=== PATIENT | female | born 1990 | race Caucasian/White ===

== ENCOUNTER 2025-09-19 04:13 | Inpatient (IN) | payer MEDICAID, SELFPAY ==
[2025-09-19] VITALS (8 sets, daily range): BP systolic 132–160; BP diastolic 80–105; PULSE 66–123; RESP 17–22; TEMP 36.1–36.7; O2SAT 96–100; BMI 21.6
--- NOTE | ~2025-09-19 | CT_ITS ---
EXAMINATION: CT ABDOMEN AND PELVIS WITH CONTRAST CLINICAL INFORMATION: pancreatitis COMPARISON: None available. TECHNIQUE: Multidetector volumetric images were obtained from the superior aspect of the liver through the pubic symphysis following administration 85 mL of Omnipaque 350 intravenous contrast. Sagittal and coronal reformatted images were obtained on the technologist's workstation. Oral contrast: No This CT examination was performed using dose optimization techniques as appropriate, variously including the following: *Automated exposure control *Adjustment of mA and/or kV according to patient size (this includes techniques or standardized protocols for targeted exams where dose is matched to indication/reason for exam; i.e. extremities or head) *Use of iterative reconstruction technique FINDINGS: LOWER CHEST: No focal lung consolidation. No pleural effusion. LIVER: Mild hepatomegaly measuring 15.5 cm. No focal lesions. GALLBLADDER AND BILIARY TREE: The gallbladder is unremarkable with no evidence of radiopaque gallstones, gallbladder wall thickening, or obvious pericholecystic inflammatory changes. No biliary ductal dilatation. PANCREAS: Parenchyma appears to enhance homogeneously. Small amount of stranding and fluid surrounding the pancreas. No pancreatic ductal dilatation. SPLEEN: No splenomegaly. No focal lesions. ADRENAL GLANDS: No nodules. KIDNEYS AND URETERS: No focal renal lesions or hydronephrosis. GASTROINTESTINAL TRACT: No bowel distention. Peritoneum/retroperitoneum: Small amount of fluid and fatty stranding surrounding the pancreas. No encapsulated/walled off fluid collection. No free air. ABDOMINAL WALL: Nipple jewelry in place. LYMPH NODES: Normal. VASCULAR: No abdominal aortic aneurysm. PELVIC VISCERA: Urinary bladder is decompressed. Physiologic appearance of the ovaries. No concerning masses. OSSEOUS STRUCTURES: No acute findings. CT/CT abdomen pelvis w IV con IMPRESSION: Findings compatible with interstitial pancreatitis associated with a small amount of nonencapsulated peripancreatic fluid/fat stranding. Electronically signed by: Regsi Arauz MD 09/19/2025 09:06 AM [facility]
[2025-09-19 04:43] LABS: MANUAL DIFF FLAG NO
[2025-09-19 04:44] LABS: Hematocrit 45.4 % (37.0-47.0); Hemoglobin 15.9 g/dl (12.0-16.0); Imm Gran Abs Auto 0.07 X10*3/uL (0.00-0.03); Imm Gran Pct Auto 0.4 % (0.0-0.4); Lymphocytes Absolute Auto 2.5 X10*3/uL (1.2-4.9); Mean Corpuscular HGB Conc 35.0 g/dl (31.0-35.0); Mean Corpuscular Hemoglobin 31.9 pg (27.0-33.0); Mean Corpuscular Volume 91.0 fL (80.0-98.0); NRBC Abs Auto 0.000 X10*3/uL (0.0-0.012); NRBC Pct Auto 0.0 /100WBC (0.0-0.2); Platelet Count 253 X10*3/uL (160-400); Red Blood Count 4.99 X10*6/uL (4.20-5.50); White Blood Count 17.7 X10*3/uL (4.8-10.8)
--- OUTSIDE RECORDS SUMMARY | 2025-09-19 05:00 | XMS_ITS | Clinical Summary ---
Author Organization [facility] Address [address] [place] [address] Care Team Providers Care Piano Teacher Name Role Phone Elsie Rashid PA-C Primary Care Provider [phone] Source Comments PLEASE NOTE, if this patient is a minor, it may be UNLAWFUL to discuss sensitive information that is contained in these records (such as FAMILY PLANNING, MENTAL HEALTH or SUBSTANCE ABUSE) with the minor patient's parent or other person without the patient's specific authorization.[facility] Allergies No known active allergies Medications ergocalciferol, vitamin D2, (VITAMIN D2) 50,000 unit capsuleIndicatio ns:Vitamin D deficiency Take 1 Cap by mouth once a week. 4 Cap 2 07/05/2013 Active Social History Tobacco Use Types Packs/Day Years Used Date Smoking Tobacco: Every Day Cigarettes Tobacco Cessation:Ready to Q uit: Yes Alcohol Use Standard Drinks/Week Comments Yes 1.7 (1 standard drink = 0.6 oz p ure alcohol) pt drinks wine coolers Comments No Sex and Gender Information Value Date Recorded Sex Assigned at Not on file Legal Sex Female 11:36 AM PDT Gender Identity Not on file Sexual Orientation Not on file Last Filed Vital Signs Vital Sign Reading Time Taken Comments Blood Pressure 100/80 07/05/2013 1:57 PM EDT Pulse 62 07/05/2013 1:57 PM EDT Temperature 36.5 C (97.7 F) 07/05/2013 1:57 PM EDT Respiratory Rate 15 07/05/2013 1:57 PM EDT Oxygen Saturation - - Inhaled Oxygen Concentration - - Weight 49.9 kg (110 lb) 07/05/2013 1:57 PM EDT Height 147.3 cm (4' 10 ) 07/05/2013 1:57 PM EDT Body Mass Index 22.99 07/05/2013 1:57 PM EDT Plan of Treatment Not on file Insurance [facility] Member Subscriber Plan / Payer (Ef fective 2013-Present) Name:Lisa Ann Relation to Subscriber:Self Name:Lisa Ann Payer ID:[id number] Group ID:Not on file Type:Medicaid Address: [facility] [id number] [place] [address] Care Teams Piano Teacher Relationship Specialty Start Date End Date Elsie Rashid PA-C [address] [place] [address] PCP - General 07/05/13
[2025-09-19 05:10] LABS: Alanine Aminotransferase 33 U/L (0-31); Albumin Level 4.0 g/dL (3.5-5.0); Alkaline Phosphatase 59 U/L (39-117); Anion Gap 22 (12-20); Aspartate Amino Transferase 73 U/L (5-31); Blood Urea Nitrogen 13 mg/dL (9-16); Calcium 9.1 mg/dL (8.4-10.2); Carbon Dioxide 17 mmol/L (22-29); Chloride 101 mmol/L (96-108); Creatinine Clr Calc Pharmacy 55.7; Estimated Glomerular Filt Rate > 60; Potassium 4.3 mmol/L (3.3-5.1); Sodium 136 mmol/L (135-145); Total Protein 7.5 g/dL (6.5-8.0)
[2025-09-19 05:22] LABS: Lipase 514 U/L (8-78)
--- NOTE | 2025-09-19 05:31 | PC.NURSE ---
pt noted to be throwing up while sitting on stretcher. IV placed in R AC.
[2025-09-19 06:04] LABS: Appearance Urine Cloudy; Glucose Urine UA 100 mg/dL (Negative); PH 6.0 (5.0-9.0); Specific Gravity - Urine >= 1.030 (1.005-1.025); UMIC TRIGGER UACC YES
[2025-09-19 06:13] LABS: UACC Culture Trigger YES
--- NOTE | 2025-09-19 06:42 | ED_ITS ---
HPI - Abdominal Pain General Chief Complaint: Abdominal Pain Stated Complaint: Abdominal Pain Time Seen by Provider: 09/19/25 06:17 Source: patient Mode of arrival: ambulatory Limitations: no limitations History of Present Illness ED Provider: HPI narrative: 34-year-old woman, drinks wine daily, history of pancreatitis a year ago, states last drink was yesterday but has been drinking consistently with a past year, reports shakes, and also possibly in the past had a seizure but was not so clear about that, has not been to detox, otherwise fairly functional and has a regular job denies drug use. Presented with nausea, vomiting, anxiety and epigastric abdominal pain. Related Data Allergies Allergy/AdvReac Type Severity Reaction Status Date / Time No Known Allergies Allergy Verified 09/19/25 04:19 Review of Systems Constitutional: Reports as per HPI [facility] Social History Social History Smoked in Last 30 Days: No Use of substances other than those prescribed or required for medical reasons: No Advance Directives: No Advance Directives Information Provided: Yes Patient : No Physical Exam ED Exam Exam: General: ?Appears of stated age, somewhat shaky ? ?no scleral icterus, dry oral mucosa ? Neck: Supple, no LAD ? ?CV: Tachycardic and regular ? ?Resp: ?No wheezing rales rhonchi no stridor moving air well ? Abd: ?Bowel sounds are present, n epigastric tenderness no rebound or rigidity ? ?MSK: FROM, strength 5/5 all extremities ? Skin: Warm, dry, intact, ? ?Neuro: ?Alert and oriented x3, moving upper and lower extremities symmetrically, no obvious facial asymmetry noted, cranial nerves 2-12 intact, tremulous, no tongue fasciculations Vital Signs: Vital Signs - 24 hr 09/19/25 04:16 09/19/25 04:41 09/19/25 08:00 Temperature 97.5 F Pulse Rate 123 H 105 H 66 Respiratory Rate 20 20 Blood Pressure 137/89 132/88 Pulse Oximetry 99 98 Oxygen Delivery Method Room Air Room Air BMI result Body Mass Index 21.6 Medical Decision Making Medical Decision Making [facility] Narrative: 7:47 AM 09/19/2025 (Dr. Erick Daniels): Anticipating admission for alcohol withdrawal, workup for pancreatitis, I think she is someone who would do well with Valium and did not feel that this patient is very high-risk for phenobarbital initiation at least at this time, does have tender abdomen we will obtain further imaging if she does have pancreatitis to make sure there was no pancreatic cysts or any biliary pathology, not Differential Diagnosis Differential Diagnoses: The differential diagnosis associated with the presentation includes (Alcohol withdrawal, Cholecystitis, pancreatitis, hepatitis, gastritis, cholangitis, ) Admission/Observation Consideration of admission/observation: Escalation of care including admission/observation considered Consult Healthcare Provider Management of the patient was discussed with: Hospitalist Lab Data MDM Lab Attestation statement: I reviewed the patient's lab results. 09/19/25 04:38 09/19/25 04:38 Labs: Lab Results 09/19/25 09/19/25 Range/Units 04:38 05:54 WBC 17.7 H (4.8-10.8) X10*3/uL RBC 4.99 (4.20-5.50) X10*6/uL Hgb 15.9 (12.0-16.0) g/dl Hct 45.4 (37.0-47.0) % MCV 91.0 (80.0-98.0) fL MCH 31.9 (27.0-33.0) pg MCHC 35.0 (31.0-35.0) g/dl RDW 12.4 (11.0-16.0) % Plt Count 253 (160-400) X10*3/uL MPV 10.5 (9.4-12.3) fL Immature Gran % (Auto) 0.4 (0.0-0.4) % Neut % (Auto) 82.4 H (45-73) % Lymph % (Auto) 14.0 L (20-40) % [place] % (Auto) 2.5 (2-11) % Eos % (Auto) 0.2 (0-4) % Baso % (Auto) 0.5 (0-2) % Lymph # (Auto) 2.5 (1.2-4.9) X10*3/uL [place] # (Auto) 0.5 (0.1-1.2) X10*3/uL Eos # (Auto) 0.0 (0.0-0.4) X10*3/uL Baso # (Auto) 0.1 (0.0-0.2) X10*3/uL Abs Immat Gran (auto) 0.07 H (0.00-0.03) X10*3/uL Absolute Neuts (auto) 14.6 H (2.0-8.3) x10*3/uL Absolute Nucleated RBC 0.000 (0.0-0.012) X10*3/uL Nucleated RBC % (auto) 0.0 (0.0-0.2) /100WBC Sodium 136 (135-145) mmol/L Potassium 4.3 (3.3-5.1) mmol/L Chloride 101 (96-108) mmol/L Carbon Dioxide 17 L (22-29) mmol/L Anion Gap 22 H (12-20) BUN 13 (9-16) mg/dL Creatinine 0.85 (0.5-1.4) mg/dL Estim Creat Clear Calc 55.7 Estimated GFR > 60 Random Glucose 161 H (60-115) mg/dL Calcium 9.1 (8.4-10.2) mg/dL Total Bilirubin 1.0 (0.0-1.0) mg/dL AST 73 H (5-31) U/L ALT 33 H (0-31) U/L Alkaline Phosphatase 59 (39-117) U/L Total Protein 7.5 (6.5-8.0) g/dL Albumin 4.0 (3.5-5.0) g/dL Lipase 514 H (8-78) U/L Beta HCG, Quant < 2 mIU/mL Urine Color Dark Yellow Urine Appearance Cloudy Urine pH 6.0 (5.0-9.0) Ur Specific [place] >= 1.030 H (1.005-1.025) Urine Protein 30 (1+) H (Neg-Trace) mg/dL Urine Glucose (UA) 100 H (Negative) mg/dL Urine Ketones 15 (Negative) mg/dL Urine Blood Small (1+) H (Negative) Urine Nitrite Negative (Negative) Ur Leukocyte Esterase Trace H (Negative) Urine RBC 3-5 H (0-2) /HPF Urine WBC 21-50 H (0-5) /HPF Ur Squamous Epith Cells 11-20 (0-2) /HPF Urine Bacteria 3+ (None Seen) Hyaline Casts 0-2 (0-2) /LPF Ethyl Alcohol 10 mg/dL Radiology Impression Discussion of test interpretation with radiology: I have reviewed the radiologist's reading. Medications Administered Discontinued Medications Generic Name Dose Route Start Last Admin Trade Name Walter PRN Reason Stop Dose Admin Diazepam 5 mg 09/19/25 06:43 09/19/25 06:55 Diazepam 10 Mg/2 Ml Cartridge IVPUSH 09/19/25 06:44 5 mg STAT STA Administration Diazepam 2.5 mg 09/19/25 07:46 09/19/25 08:44 Diazepam 10 Mg/2 Ml Cartridge IVPUSH 09/19/25 07:47 2.5 mg STAT STA Administration Sodium Chloride 1,000 mls @ 999 mls/hr 09/19/25 06:45 09/19/25 07:02 Ns IV 09/19/25 07:45 999 mls/hr .Q1H1M MAURICE Administration Ceftriaxone Sodium 1 gm/ 50 mls @ 100 mls/hr 09/19/25 06:43 09/19/25 07:02 Sodium Chloride IV 09/19/25 07:12 100 mls/hr ONCE ONE Administration Iohexol 100 ml 09/19/25 08:32 09/19/25 08:33 Iohexol 350 Mg/Ml 100 Ml Infus..Btl IV 09/19/25 08:33 85 ml ONCE ONE Administration Ketorolac Tromethamine 15 mg 09/19/25 06:43 09/19/25 06:55 Ketorolac Tromethamine 15 Mg/Ml Vial IVPUSH 09/19/25 06:44 15 mg ONCE ONE Administration Ondansetron HCl 4 mg 09/19/25 06:43 09/19/25 06:55 Ondansetron Hcl 4 Mg/2 Ml Vial IVPUSH 09/19/25 06:44 4 mg ONCE ONE Administration Critical Care Time Critical Care Time Total Critical Care Time: 35 Attestation: Time is exclusive of separately billable procedures. Time includes: direct patient care, patient reassessment, coordination of patient care, interpretation of data (laboratory data, pulse oximetry, arterial blood gases and chest xrays), review of patient's medical records, medical consultation and documentation of patient care. Procedures excluded from critical care time: central intravenous line placement and electrocardiography. Discharge Plan Discharge Clinical Impression: Alcohol withdrawal, Acute pancreatitis Print Language: Bulgarian
[2025-09-19] MEDS: diazePAM 10 MG/2 ML CARTRIDGE 5 MG IVPUSH (06:55)
--- NOTE | 2025-09-19 07:49 | ECG_ITS ---
Test Reason : alcohol withdrawl Blood Pressure : */* mmHG Vent. Rate : 79 BPM Atrial Rate : 79 BPM P-R Int : 108 ms QRS Dur : 78 ms QT Int : 398 ms P-R-T Axes : 40 72 59 degrees QTcB Int : 456 ms Sinus rhythm with short FL Otherwise normal ECG No previous ECGs available Referred By: Erick Daniels Electronically Signed By: Price Moreno
[2025-09-19] MEDS: iohexoL 350 MG/ML 100 ML INFUS..BTL IV (08:33)
[2025-09-19] MEDS: diazePAM 10 MG/2 ML CARTRIDGE 2.5 MG IVPUSH (08:44)
--- NOTE | 2025-09-19 10:12 | PM.IMHP ---
History of Present Illness Date of Service: 09/19/25 Attending physician on admission: Lakia Rosario Chief Complaint: abdominal pain This is a 34 year old female with a history of etoh use who presents to the ED with abdominal pain. Patient reports a having pancreatitis two years ago requiring admission at [facility]. Since then she gets intermittent abdominal pain but has not had to be readmitted to the hospital. She reports drinking up to 10 nips of alcohol daily, has a history of alcohol withdrawal in the past with history of 1 seizure. Today she presents to the emergency department with abdominal pain which has been worse over the past 1 week. It is primarily located in the abdomen and epigastrium and associated with multiple episodes of nonbloody emesis. She has been unable to tolerate any oral intake. In the emergency department lipase elevated at 514. CT scan of the abdomen and pelvis showing acute pancreatitis. Urinalysis was also concerning for urinary tract infection and patient reports 2 days of pressure with urination. She denies any fever but does endorse intermittent chills. In the emergency department she required 2 doses of Valium and multiple doses of antiemetics for vomiting. Review of Systems Review of Systems: Yes all other systems are reviewed and are negative Constitutional: Constitutional: Reports chills and Denies fever(s) Cardiovascular: Cardiovascular: Denies chest pain, Denies palpitations and Denies dyspnea Respiratory: Respiratory: Denies dyspnea Gastrointestinal: Gastrointestinal: Reports abdominal pain, Reports nausea and Reports vomiting Endocrine: Endocrine: Denies palpitations [facility] Social History Smoked in Last 30 Days: No Use of substances other than those prescribed or required for medical reasons: No Advance Directives: No Advance Directives Information Provided: Yes Patient : No Meds Allergies Allergy/AdvReac Type Severity Reaction Status Date / Time No Known Allergies Allergy Verified 09/19/25 04:19 Home Medications ?Medication ?Instructions ?Recorded ?Confirmed ?Last Taken ?Type No Known Home Meds 09/19/25 09/19/25 Unknown History Physical Exam Vital Signs and Narrative: Vital Signs: Last Vital Signs Temp 98.1 F 09/19/25 10:09 Pulse 80 09/19/25 10:09 Resp 18 09/19/25 10:09 BP 152/95 H 09/19/25 10:09 Pulse Ox 97 09/19/25 10:09 O2 Del Method Room Air 09/19/25 10:09 BMI result Body Mass Index 21.6 Const: Other: appears uncomfortable, intermittent dry heaving General: alert and awake Nutritional Appearance: average body habitus Orientation/consciousness: patient oriented x3 Resp: Effort & Inspection: normal respiratory effort, able to speak in complete sentences, no respiratory distress and no use of accessory muscles Cardio: Rate: regular rate GI: Other: generalized abdominal tenderness to palpation, worse epigastric/upper abdomen; no guarding or rigidity; +BS Inspection: No distended Palpation (GI): Soft to palpation Neuro: General: patient oriented x3, moves all extremities and CN's II-XI intact bilaterally Extrem: General: No pedal edema Results Labs 09/19/25 04:38 09/19/25 04:38 Labs: Laboratory Results - last 24 hr 09/19/25 09/19/25 04:38 05:54 MCV 91.0 MCH 31.9 MCHC 35.0 RDW 12.4 Plt Count 253 MPV 10.5 Immature Gran % (Auto) 0.4 Neut % (Auto) 82.4 H Lymph % (Auto) 14.0 L [place] % (Auto) 2.5 Eos % (Auto) 0.2 Baso % (Auto) 0.5 Lymph # (Auto) 2.5 [place] # (Auto) 0.5 Eos # (Auto) 0.0 Baso # (Auto) 0.1 Abs Immat Gran (auto) 0.07 H Absolute Neuts (auto) 14.6 H Absolute Nucleated RBC 0.000 Nucleated RBC % (auto) 0.0 Anion Gap 22 H Estim Creat Clear Calc 55.7 Estimated GFR > 60 Random Glucose 161 H Calcium 9.1 Total Bilirubin 1.0 AST 73 H ALT 33 H Alkaline Phosphatase 59 Total Protein 7.5 Albumin 4.0 Lipase 514 H Beta HCG, Quant < 2 Urine Color Dark Yellow Urine Appearance Cloudy Urine pH 6.0 Ur Specific [place] >= 1.030 H Urine Protein 30 (1+) H Urine Glucose (UA) 100 H Urine Ketones 15 Urine Blood Small (1+) H Urine Nitrite Negative Ur Leukocyte Esterase Trace H Urine RBC 3-5 H Urine WBC 21-50 H Ur Squamous Epith Cells 11-20 Urine Bacteria 3+ Hyaline Casts 0-2 Ethyl Alcohol 10 Imaging Radiologist's Impressions: Impressions Abdomen/Pelvis CT 09/19/25 08:30 IMPRESSION: Findings compatible with interstitial pancreatitis associated with a small amount of nonencapsulated peripancreatic fluid/fat stranding. Electronically signed by: Regis Arauz MD 09/19/2025 09:06 AM [facility] and Plan (1) Acute pancreatitis: Status: Acute (2) Alcohol withdrawal: Status: Acute Plan This is a 34-year-old female with a history of alcohol dependence who presents to the emergency department with abdominal pain found to have pancreatitis, alcohol withdrawal, urinary tract infection Abdominal pain Due to acute alcohol induced pancreatitis and probable alcoholic gastritis IV antiemetics, IVF, pain control IV pepcid NPO, slowly advance diet etoh use disorder with acute alcohol withdrawal tachycardia due to etoh withdrawal follow CIWA start phenobarbitol protocol Supplement with thiamine, folic acid and magnesium Addiction medicine consultation Acute AGMA likely due to starvation/alcoholic ketosis IV hydration trend BMP leukocytosis likely due to vomiting trend CBC UTI although urine sample not definitive, pt is symptomatic therefore will continue IV ceftriaxone for now follow Urine culture, blood cultures transaminitis, mild likely due to etoh use. mild hepatomegaly on CT. no h/o cirrhosis trend LFTs dvt ppx - lovenox Patient will likely require 2 midnight stay in the hospital for management of acute alcoholic pancreatitis requiring close monitoring and phenobarbital IM, pancreatitis and urinary tract infection requiring IV antibiotics Quality Stroke Does the patient have a stroke diagnosis?: No VTE Prior VTE?: No VTE Risk Level:: Medical - moderate - high VTE Device Contraindication: N/A - Device Ordered VTE Drug Contraindication: N/A - Med Ordered
[2025-09-19 10:31] LABS: Magnesium 1.8 mg/dL (1.6-2.6)
[2025-09-19] MEDS: Lactated Ringers 1,000 ML 125 ML IVCONT ×2 (10:50→18:56)
--- NOTE | 2025-09-19 11:53 | PHA.MEDREC ---
Addendum entered by Tina Fair RPh 09/19/25 12:10: REVIEWED BY PHARMACIST Original Note: Pharmacy Consult ? Medication Reconciliation Pharmacy has completed the medication reconciliation. Spoke with pt and she confirmed she is not taking any medications at this time.
[2025-09-19] MEDS: PHENobarbitaL sodium 130 MG/ML IM ONCE 99 MG IM (12:01)
[2025-09-19 12:33] LABS: Triglycerides 90 mg/dL (<150)
[2025-09-19] MEDS: PHENobarbitaL sodium 130 MG/ML VIAL IM Q3Hx2 74 MG IM ×2 (14:39→18:54)
--- NOTE | 2025-09-19 16:20 | HO.NURTONUR ---
Pt arrived c/o abd pain x1 week, reporting having pancreatitis 2 yrs ago requiring admission (similar symptoms). Hx ETOH (approx 10 nips/day), w/withdrawal in the past and 1 seizure. ED workup pos for lipase 514, CT showing acute pancreatitis, and +UTI. Pt on phenobarb protocol, PRN morphine and zofran. Admitted for IVF, abx, pain/nausea control, and cardiac monitoring. Ambulatory/independent, aaox4.
[2025-09-19] MEDS: 0.9 % Sodium Chloride Flush 3 ML SYRINGE IVFLUSH (22:42)
[2025-09-20] VITALS (7 sets, daily range): BP systolic 123–134; BP diastolic 78–92; PULSE 88–113; RESP 16–20; TEMP 36–36.8; O2SAT 95–99
[2025-09-20 01:16] LABS: Glucose, Whole Blood 147 mg/dL (60-115)
[2025-09-20] MEDS: Lactated Ringers 1,000 ML 125 ML IVCONT ×3 (02:29→20:14)
[2025-09-20 07:07] LABS: Hematocrit 40.2 % (37.0-47.0); Hemoglobin 13.9 g/dl (12.0-16.0); Mean Corpuscular HGB Conc 34.6 g/dl (31.0-35.0); Mean Corpuscular Hemoglobin 32.0 pg (27.0-33.0); Mean Corpuscular Volume 92.6 fL (80.0-98.0); NRBC Abs Auto 0.000 X10*3/uL (0.0-0.012); NRBC Pct Auto 0.0 /100WBC (0.0-0.2); Platelet Count 166 X10*3/uL (160-400); Red Blood Count 4.34 X10*6/uL (4.20-5.50); White Blood Count 11.3 X10*3/uL (4.8-10.8)
[2025-09-20 07:30] LABS: Alanine Aminotransferase 23 U/L (0-31); Albumin Level 3.8 g/dL (3.5-5.0); Alkaline Phosphatase 52 U/L (39-117); Aspartate Amino Transferase 48 U/L (5-31); Blood Urea Nitrogen 3 mg/dL (9-16); Calcium 8.7 mg/dL (8.4-10.2); Creatinine Clr Calc Pharmacy 69.6; Estimated Glomerular Filt Rate > 60; Lipase 244 U/L (8-78); Total Protein 6.5 g/dL (6.5-8.0)
[2025-09-20 07:41] LABS: Anion Gap 16 (12-20); Carbon Dioxide 25 mmol/L (22-29); Chloride 99 mmol/L (96-108); Potassium 3.2 mmol/L (3.3-5.1); Sodium 137 mmol/L (135-145)
[2025-09-20] MEDS: Potassium Chloride ER 20 MEQ TAB.ER.PRT 40 MEQ PO (09:00)
[2025-09-20] MEDS: 0.9 % Sodium Chloride Flush 3 ML SYRINGE IVFLUSH ×2 (09:01→22:54)
--- NOTE | 2025-09-20 10:27 | P.PNIM_ITS ---
Subjective Subjective Date of Service: 09/20/25 Interval History: still with pain but interested in liquids Physical Exam 2 Exam: Exam: General: AO X 3, no acute distress Resp: CTA bilateral, no accessory muscles used CVS: S1,S2,RRR GI: soft, tender, non distended Neuro: motor grossly intact, alert Psych: appropriate affect, appropriate insight Vital Signs: Vital Signs: Last Vital Signs Temp 96.8 F 09/20/25 08:00 Pulse 104 H 09/20/25 08:00 Resp 20 09/20/25 08:00 BP 130/91 H 09/20/25 08:00 Pulse Ox 98 09/20/25 08:00 O2 Del Method Room Air 09/20/25 08:00 BMI result Body Mass Index 21.6 Objective Data Active Medications Acetaminophen (Acetaminophen 325 Mg Tablet) 650 mg PO Q6H PRN PRN Reason: Pain, Mild 1-3,fever,headache Calcium Carbonate (Calcium Carbonate 750 Mg Tab.Chew) 750 mg PO Q4H PRN PRN Reason: Heartburn Enoxaparin Sodium (Enoxaparin Sodium 40 Mg/0.4 Ml Syringe) 40 mg SUBCUT Q24H [facility] Last Admin: 09/19/25 12:06 Dose: 40 mg Documented By: ARVIND-VEE Famotidine (Famotidine/Pf 20 Mg/2 Ml Vial) 20 mg IVPUSH DAILY [facility] Last Admin: 09/20/25 09:01 Dose: 20 mg Documented By: ELIANE Folic Acid (Folic Acid 1 Mg Tablet) 1 mg PO DAILY [facility] Last Admin: 09/20/25 09:00 Dose: 1 mg Documented By: ELIANE Lactated Ringer's (Lr) 1,000 mls @ 125 mls/hr IVCONT .Q8H [facility] Last Admin: 09/20/25 02:29 Dose: 125 mls/hr Documented By: ALONA Ceftriaxone Sodium 1 gm/ (Sodium Chloride) 50 mls @ 100 mls/hr IV Q24H [facility] Last Infusion: 09/20/25 08:00 Dose: Infused Documented By: ELIANE Ketorolac Tromethamine (Ketorolac Tromethamine 15 Mg/Ml Vial) 15 mg IVPUSH Q6H PRN PRN Reason: Pain, Moderate(Pain Scale 4-6) Magnesium Hydroxide (Milk Of Magnesia 30 Ml Oral.Susp) 30 ml PO DAILY PRN PRN Reason: Constipation Magnesium Oxide (Magnesium Oxide 400 Mg Tablet) 400 mg PO BIDPC [facility] Last Admin: 09/20/25 09:00 Dose: 400 mg Documented By: ELIANE Melatonin (Melatonin 3 Mg Tablet) 6 mg PO BEDTIME PRN PRN Reason: Insomnia Morphine Sulfate (Morphine Sulfate 4 Mg/Ml Cartridge) 2 mg IVPUSH Q3H PRN; Protocol PRN Reason: Pain, Severe (Pain Scale 7-10) Last Admin: 09/20/25 09:54 Dose: 2 mg Documented By: ELIANE Ondansetron HCl (Ondansetron Hcl 4 Mg/2 Ml Vial) 4 mg IVPUSH Q8H PRN PRN Reason: Nausea and Vomiting Last Admin: 09/20/25 03:04 Dose: 4 mg Documented By: ALONA Comments: Given early per provider instruction. Dr Agarwal Pharmacy Consult (Consult Rx Etoh Phenob Im/Po) 1 each MISCELLANE ONCE PRN; Protocol PRN Reason: Consult order Phenobarbital (Phenobarbital 30 Mg Tablet) 30 mg PO BID [facility]; Protocol Stop: 09/21/25 21:01 Last Admin: 09/20/25 09:00 Dose: 30 mg Documented By: ELIANE Phenobarbital (Phenobarbital 15 Mg Tablet) 15 mg PO BID [facility]; Protocol Stop: 09/23/25 21:01 Phenobarbital (Phenobarbital 15 Mg Tablet) 15 mg PO DAILY [facility]; Protocol Stop: 09/25/25 09:01 Sodium Chloride (0.9 % Sodium Chloride Flush 3 Ml Syringe) [facility] Last Admin: 09/20/25 09:01 Dose: 3 ml Documented By: ELIANE Thiamine HCl (Thiamine Hcl 100 Mg Tablet) 100 mg PO DAILY [facility] Last Admin: 09/20/25 09:00 Dose: 100 mg Documented By: ELIANE Labs 09/20/25 06:49 09/20/25 06:49 Labs: Laboratory Results - last 24 hr 09/19/25 09/19/25 09/20/25 04:38 11:57 01:11 MCV MCH MCHC RDW Plt Count MPV Absolute Nucleated RBC Nucleated RBC % (auto) Anion Gap Estim Creat Clear Calc Estimated GFR POC Glucose 147 H Random Glucose Calcium Magnesium 1.8 Total Bilirubin Direct Bilirubin AST ALT Alkaline Phosphatase Total Protein Albumin Triglycerides 90 Lipase 09/20/25 06:49 MCV 92.6 MCH 32.0 MCHC 34.6 RDW 12.2 Plt Count 166 D MPV 10.7 Absolute Nucleated RBC 0.000 Nucleated RBC % (auto) 0.0 Anion Gap 16 Estim Creat Clear Calc 69.6 Estimated GFR > 60 POC Glucose Random Glucose 116 H Calcium 8.7 Magnesium Total Bilirubin 1.0 Direct Bilirubin 0.3 AST 48 H ALT 23 Alkaline Phosphatase 52 Total Protein 6.5 Albumin 3.8 Triglycerides Lipase 244 H Microbiology Microbiology Results: Microbiology 09/19/25 07:47 Blood Culture - Preliminary Blood - Venous No growth after 24 hours. 09/19/25 07:00 Blood Culture - Preliminary Blood - Venous No growth after 24 hours. 09/19/25 Unknown Urine Culture - Preliminary Urine clean catch - Clean Catch Midstream Culture in progress. Assessment and Plan (1) Acute pancreatitis: Status: Acute Plan 34F PMH ETOH dependence presented with abd pain acute etoh pancreatitis advance to clears ivf, iv pain meds advance as tolerated etoh dependence with withdrawal phenobarb, ciwa symptoms improving DVT prophylaxis with Lovenox Full code reason for continued hospitalization:not tolerating po Quality Stroke Does the patient have a stroke diagnosis?: No VTE Prior VTE?: No VTE Risk Level:: Medical - moderate - high VTE Device Contraindication: N/A - Device Ordered VTE Drug Contraindication: N/A - Med Ordered
--- NOTE | 2025-09-20 11:18 | MHC.CM.PN ---
THIS CM MET WITH PATIENT, SHE IS SELF-CARE, LIVES WITH HER BOYFRIEND SOME OF THE TIME, AND HER DAD SOME OF THE TIME (DEPENDING ON HOW SHE FEELS). PATIENT STATES SHE HAS A HCP, COPY REQUESTED. PATIENT WILL ARRANGE HER OWN TRANSPORT HOME AT DISCHARGE. PATIENT STATES SHE CURRENTLY DOES NOT HAVE A PCP, BUT IS WORKING ON IT, STATING SHE JUST RECENTLY GOT BACK ON [employer].
--- NOTE | 2025-09-20 18:43 | MHC.RECOVRN ---
late entry TW met with pt at approximately 10am after consult was placed to Addiction Medicine for AUD. On approach pt was resting in bed watching television. She reports continued abdominal pain and nausea but is interested in trialing liquids soon. She reports mild tremor which was observed and headache at this time and continues on a phenobarbital taper. ACs team to continue to follow to complete Rec/Bh assessment and is available as needed for ongoing support.
[2025-09-21 04:00] VITALS: BP 110/82; PULSE 89; RESP 16; TEMP 36.3; O2SAT 98
[2025-09-21] MEDS: Lactated Ringers 1,000 ML 125 ML IVCONT (05:41)
[2025-09-21 06:12] LABS: Hematocrit 37.2 % (37.0-47.0); Hemoglobin 12.9 g/dl (12.0-16.0); Mean Corpuscular HGB Conc 34.7 g/dl (31.0-35.0); Mean Corpuscular Hemoglobin 32.3 pg (27.0-33.0); Mean Corpuscular Volume 93.2 fL (80.0-98.0); NRBC Abs Auto 0.000 X10*3/uL (0.0-0.012); NRBC Pct Auto 0.0 /100WBC (0.0-0.2); Platelet Count 155 X10*3/uL (160-400); Red Blood Count 3.99 X10*6/uL (4.20-5.50); White Blood Count 9.1 X10*3/uL (4.8-10.8)
[2025-09-21 06:21] LABS: INTERNATIONAL NORM RATIO 0.9 (0.9-1.1); Prothrombin Time 10.9 SEC (11.2-13.5)
[2025-09-21 06:32] LABS: Alanine Aminotransferase 24 U/L (0-31); Albumin Level 3.9 g/dL (3.5-5.0); Alkaline Phosphatase 54 U/L (39-117); Anion Gap 11 (12-20); Aspartate Amino Transferase 52 U/L (5-31); Blood Urea Nitrogen < 3 mg/dL (9-16); Calcium 9.0 mg/dL (8.4-10.2); Carbon Dioxide 27 mmol/L (22-29); Chloride 103 mmol/L (96-108); Creatinine Clr Calc Pharmacy 76.4; Estimated Glomerular Filt Rate > 60; Magnesium 2.0 mg/dL (1.6-2.6); Potassium 3.6 mmol/L (3.3-5.1); Sodium 137 mmol/L (135-145); Total Protein 6.5 g/dL (6.5-8.0)
[2025-09-21 07:29] VITALS: BP 123/80; PULSE 81; RESP 16; TEMP 36.4; O2SAT 99
--- NOTE | 2025-09-21 09:32 | P.PNIM_ITS ---
Subjective Subjective Date of Service: 09/21/25 Interval History: wants to start solids Physical Exam 2 Exam: Exam: General: AO X 3, no acute distress Resp: CTA bilateral, no accessory muscles used CVS: S1,S2,RRR GI: soft, tender, non distended Neuro: motor grossly intact, alert Psych: appropriate affect, appropriate insight Vital Signs: Vital Signs: Last Vital Signs Temp 97.6 F 09/21/25 07:29 Pulse 81 09/21/25 07:29 Resp 16 09/21/25 07:29 BP 123/80 09/21/25 07:29 Pulse Ox 99 09/21/25 07:29 O2 Del Method Room Air 09/21/25 07:29 BMI result Body Mass Index 21.6 Objective Data Active Medications Acetaminophen (Acetaminophen 325 Mg Tablet) 650 mg PO Q6H PRN PRN Reason: Pain, Mild 1-3,fever,headache Calcium Carbonate (Calcium Carbonate 750 Mg Tab.Chew) 750 mg PO Q4H PRN PRN Reason: Heartburn Enoxaparin Sodium (Enoxaparin Sodium 40 Mg/0.4 Ml Syringe) 40 mg SUBCUT Q24H [facility] Last Admin: 09/21/25 09:25 Dose: 40 mg Documented By: DANY Famotidine (Famotidine/Pf 20 Mg/2 Ml Vial) 20 mg IVPUSH DAILY [facility] Last Admin: 09/21/25 08:15 Dose: 20 mg Documented By: DANY Folic Acid (Folic Acid 1 Mg Tablet) 1 mg PO DAILY [facility] Last Admin: 09/21/25 08:15 Dose: 1 mg Documented By: DANY Lactated Ringer's (Lr) 1,000 mls @ 125 mls/hr IVCONT .Q8H [facility] Last Admin: 09/21/25 05:41 Dose: 125 mls/hr Documented By: DAJA Ceftriaxone Sodium 1 gm/ (Sodium Chloride) 50 mls @ 100 mls/hr IV Q24H [facility] Last Infusion: 09/21/25 09:17 Dose: Infused Documented By: DANY Ketorolac Tromethamine (Ketorolac Tromethamine 15 Mg/Ml Vial) 15 mg IVPUSH Q6H PRN PRN Reason: Pain, Moderate(Pain Scale 4-6) Magnesium Hydroxide (Milk Of Magnesia 30 Ml Oral.Susp) 30 ml PO DAILY PRN PRN Reason: Constipation Magnesium Oxide (Magnesium Oxide 400 Mg Tablet) 400 mg PO BIDPC [facility] Last Admin: 09/21/25 08:15 Dose: 400 mg Documented By: DANY Melatonin (Melatonin 3 Mg Tablet) 6 mg PO BEDTIME PRN PRN Reason: Insomnia Last Admin: 09/20/25 20:12 Dose: 6 mg Documented By: DAJA Morphine Sulfate (Morphine Sulfate 4 Mg/Ml Cartridge) 2 mg IVPUSH Q3H PRN; Protocol PRN Reason: Pain, Severe (Pain Scale 7-10) Last Admin: 09/21/25 09:23 Dose: 2 mg Documented By: DANY Ondansetron HCl (Ondansetron Hcl 4 Mg/2 Ml Vial) 4 mg IVPUSH Q8H PRN PRN Reason: Nausea and Vomiting Last Admin: 09/21/25 09:32 Dose: 4 mg Documented By: DANY Pharmacy Consult (Consult Rx Etoh Phenob Im/Po) 1 each MISCELLANE ONCE PRN; Protocol PRN Reason: Consult order Phenobarbital (Phenobarbital 30 Mg Tablet) 30 mg PO BID [facility]; Protocol Stop: 09/21/25 21:01 Last Admin: 09/21/25 08:15 Dose: 30 mg Documented By: DANY Phenobarbital (Phenobarbital 15 Mg Tablet) 15 mg PO BID [facility]; Protocol Stop: 09/23/25 21:01 Phenobarbital (Phenobarbital 15 Mg Tablet) 15 mg PO DAILY [facility]; Protocol Stop: 09/25/25 09:01 Sodium Chloride (0.9 % Sodium Chloride Flush 3 Ml Syringe) [facility] Last Admin: 09/21/25 08:03 Dose: Not Given Documented By: DANY Non-Admin Reason: IV Running Thiamine HCl (Thiamine Hcl 100 Mg Tablet) 100 mg PO DAILY [facility] Last Admin: 09/21/25 08:15 Dose: 100 mg Documented By: DANY Labs 09/21/25 05:59 09/21/25 05:59 Labs: Laboratory Results - last 24 hr 09/21/25 05:59 MCV 93.2 MCH 32.3 MCHC 34.7 RDW 12.7 Plt Count 155 L MPV 10.7 Absolute Nucleated RBC 0.000 Nucleated RBC % (auto) 0.0 PT 10.9 L INR 0.9 Anion Gap 11 L Estim Creat Clear Calc 76.4 Estimated GFR > 60 Random Glucose 122 H Calcium 9.0 Magnesium 2.0 Total Bilirubin 0.5 Direct Bilirubin 0.2 AST 52 H ALT 24 Alkaline Phosphatase 54 Total Protein 6.5 Albumin 3.9 Microbiology Microbiology Results: Microbiology 09/19/25 07:00 Blood Culture - Preliminary Blood - Venous No growth after 48 hours. 09/19/25 07:47 Blood Culture - Preliminary Blood - Venous No growth after 24 hours. 09/19/25 Unknown Urine Culture - Preliminary Urine clean catch - Clean Catch Midstream Culture in progress. Assessment and Plan (1) Acute pancreatitis: Status: Acute Plan 34F PMH ETOH dependence presented with abd pain acute etoh pancreatitis advance to solids ivf, iv pain meds etoh dependence with withdrawal phenobarb, ciwa symptoms improving DVT prophylaxis with Lovenox Full code reason for continued hospitalization:awaiting evidence of po tolerance Quality Stroke Does the patient have a stroke diagnosis?: No VTE Prior VTE?: No VTE Risk Level:: Medical - moderate - high VTE Device Contraindication: N/A - Device Ordered VTE Drug Contraindication: N/A - Med Ordered
--- NOTE | 2025-09-21 09:34 | PM.DS ---
DS: Providers Provider Date of Service: 09/23/25 Date of admission: 09/19/25 09:53 Date of discharge: 09/23/25 Primary care physician: Unknown Physician Consults: 09/19/25 10:30 Addiction Medicine Provider Routine Consulting Provider: Addiction Covering Reason for consultation: etoh dependence Has provider been notified: No DS: Diagnosis Discharge Diagnosis (1) Acute pancreatitis: Status: Acute DS: Summary Hospital Course Hospital Course: from initial hpi: 34 year old female with a history of etoh use who presents to the ED with abdominal pain. Patient reports a having pancreatitis two years ago requiring admission at [facility]. Since then she gets intermittent abdominal pain but has not had to be readmitted to the hospital. She reports drinking up to 10 nips of alcohol daily, has a history of alcohol withdrawal in the past with history of 1 seizure. Today she presents to the emergency department with abdominal pain which has been worse over the past 1 week. It is primarily located in the abdomen and epigastrium and associated with multiple episodes of nonbloody emesis. She has been unable to tolerate any oral intake. In the emergency department lipase elevated at 514. CT scan of the abdomen and pelvis showing acute pancreatitis. Urinalysis was also concerning for urinary tract infection and patient reports 2 days of pressure with urination. She denies any fever but does endorse intermittent chills. In the emergency department she required 2 doses of Valium and multiple doses of antiemetics for vomiting. hospital course: Patient was admitted for acute alcoholic pancreatitis. Was given pain meds and IV fluids and diet slowly advanced to the point where she is now tolerating solids. For alcohol dependence with withdrawal was treated with phenobarbital withdrawal resolved. Abstinence is recommended. for uti, completed treatment with rocephin, Patient is feeling better and she will be discharged home. Time Attestation Discharge Coordination Time (in mins): 35 Quality: Safe Use of Opioids Does Pt have an Active Cancer Diagnosis on the Problem List?: No Quality: Stroke Does the patient have a stroke diagnosis?: No Physical Exam Exam: Exam: General: AO X 3, no acute distress Resp: CTA bilateral, no accessory muscles used CVS: S1,S2,RRR GI: soft, non tender, non distended Neuro: motor grossly intact, alert Psych: appropriate affect, appropriate insight Vital Signs: Vital Signs: Last Vital Signs Temp 97.6 F 09/21/25 07:29 Pulse 81 11/08/25 07:29 Resp 16 09/21/25 07:29 BP 123/80 09/21/25 07:29 Pulse Ox 99 09/21/25 07:29 O2 Del Method Room Air 09/21/25 07:29 BMI result Body Mass Index 21.6 DS: Data Data Completed and Pending Labs on day of discharge: Laboratory Results - last 24 hr 09/21/25 05:59 WBC 9.1 RBC 3.99 L Hgb 12.9 Hct 37.2 MCV 93.2 MCH 32.3 MCHC 34.7 RDW 12.7 Plt Count 155 L MPV 10.7 Absolute Nucleated RBC 0.000 Nucleated RBC % (auto) 0.0 PT 10.9 L INR 0.9 Sodium 137 Potassium 3.6 Chloride 103 Carbon Dioxide 27 Anion Gap 11 L BUN < 3 L Creatinine 0.62 Estim Creat Clear Calc 76.4 Estimated GFR > 60 Random Glucose 122 H Calcium 9.0 Magnesium 2.0 Total Bilirubin 0.5 Direct Bilirubin 0.2 AST 52 H ALT 24 Alkaline Phosphatase 54 Total Protein 6.5 Albumin 3.9 Preliminary micro results at discharge 09/19/25 07:00 Blood Culture - Preliminary Blood - Venous No growth after 48 hours. 09/19/25 07:47 Blood Culture - Preliminary Blood - Venous No growth after 24 hours. 09/19/25 Unknown Urine Culture - Preliminary Urine clean catch - Clean Catch Midstream Culture in progress. Discharge Plan Discharge Anticipated Discharge Date/Time: 09/21/25 09:33 Patient Disposition: Home, Self-Care Discharge Diagnosis: etoh pancreatitis Referrals: Physician,Unknown J [Primary Care Provider, Medical] - 1 Week Discharge Medications: No Action No Known Home Meds Discharge Orders: Discharge Order (Routine); Ordered 09/23/25 Ordered By: Danilo Shea Diet: Advance to usual diet Activity on Discharge: As tolerated Stand Alone Forms: Patient Portal Discharge page Print Language: Danish Care Plan Goals: recovery Health Concerns: etoh Plan of Treatment: avoid etoh Assessment: see above
[2025-09-21 11:35] VITALS: BP 127/77; PULSE 99; RESP 18; TEMP 36.7; O2SAT 100
[2025-09-21 15:45] VITALS: BP 116/74; PULSE 78; RESP 18; TEMP 37.2; O2SAT 97
[2025-09-21] MEDS: 0.9 % Sodium Chloride Flush 3 ML SYRINGE IVFLUSH (15:53)
--- NOTE | 2025-09-21 15:57 | MHC.RECOVRN ---
Met with pt to discuss alcohol use & recovery supports and options. Pt denying feelings of withdrawal at this time. Pt eager to fully abstain from alcohol use. Discussed useful tools in recovery such as having a power and recovery superintendent. Pt not interested in inpatient or outpatient tx at the moment. See recovery eval for more info.
[2025-09-21 20:00] VITALS: BP 121/84; PULSE 82; RESP 16; TEMP 36.8; O2SAT 96
[2025-09-22] VITALS: BP 112/75; PULSE 72; RESP 20; TEMP 36.4; O2SAT 99
[2025-09-22 04:00] VITALS: BP 132/90; PULSE 88; RESP 16; TEMP 36.1; O2SAT 98
[2025-09-22 07:12] VITALS: BP 134/87; PULSE 71; RESP 18; TEMP 36.4; O2SAT 97
--- NOTE | 2025-09-22 09:55 | MHC.RECOVRN ---
Follow up meeting w/pt to discuss plans following d/c. Pt declined outpatient CHRISTINA tx appointment at the [facility] for tx of her AUD and declined DORA initiliudmila at this time. Discussed recovery supports that have been helpful in the past. 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 See recovery eval for more info.
[2025-09-22 11:23] VITALS: BP 136/63; PULSE 97; RESP 16; TEMP 36.5; O2SAT 99
--- NOTE | 2025-09-22 11:35 | P.PNIM_ITS ---
Subjective Subjective Date of Service: 09/22/25 Interval History: Still with pain nausea and vomiting today Physical Exam 2 Exam: Exam: General: AO X 3, no acute distress Resp: CTA bilateral, no accessory muscles used CVS: S1,S2,RRR GI: soft, tender, non distended Neuro: motor grossly intact, alert Psych: appropriate affect, appropriate insight Vital Signs: Vital Signs: Last Vital Signs Temp 97.7 F 09/22/25 11:23 Pulse 97 09/22/25 11:23 Resp 16 09/22/25 11:23 BP 136/63 09/22/25 11:23 Pulse Ox 99 09/22/25 11:23 O2 Del Method Room Air 09/22/25 11:23 BMI result Body Mass Index 21.6 Objective Data Active Medications Acetaminophen (Acetaminophen 325 Mg Tablet) 650 mg PO Q6H PRN PRN Reason: Pain, Mild 1-3,fever,headache Last Admin: 09/21/25 20:03 Dose: 650 mg Documented By: LUIS Calcium Carbonate (Calcium Carbonate 750 Mg Tab.Chew) 750 mg PO Q4H PRN PRN Reason: Heartburn Last Admin: 09/21/25 20:03 Dose: 750 mg Documented By: LUIS Enoxaparin Sodium (Enoxaparin Sodium 40 Mg/0.4 Ml Syringe) 40 mg SUBCUT Q24H [facility] Last Admin: 09/22/25 09:36 Dose: 40 mg Documented By: DANY Famotidine (Famotidine/Pf 20 Mg/2 Ml Vial) 20 mg IVPUSH DAILY [facility] Last Admin: 09/22/25 09:34 Dose: 20 mg Documented By: DANY Folic Acid (Folic Acid 1 Mg Tablet) 1 mg PO DAILY [facility] Last Admin: 09/22/25 09:35 Dose: 1 mg Documented By: DANY Ceftriaxone Sodium 1 gm/ (Sodium Chloride) 50 mls @ 100 mls/hr IV Q24H [facility] Last Infusion: 09/22/25 07:30 Dose: Infused Documented By: DANY Ketorolac Tromethamine (Ketorolac Tromethamine 15 Mg/Ml Vial) 15 mg IVPUSH Q6H PRN PRN Reason: Pain, Moderate(Pain Scale 4-6) Magnesium Hydroxide (Milk Of Magnesia 30 Ml Oral.Susp) 30 ml PO DAILY PRN PRN Reason: Constipation Magnesium Oxide ([facility] 400 Mg Tablet) [facility] Last Admin: 09/22/25 09:35 Dose: 400 mg Documented By: DANY Melatonin (Melatonin 3 Mg Tablet) 6 mg PO BEDTIME PRN PRN Reason: Insomnia Last Admin: 09/20/25 20:12 Dose: 6 mg Documented By: DAJA Morphine Sulfate (Morphine Sulfate 4 Mg/Ml Cartridge) 2 mg IVPUSH Q3H PRN; Protocol PRN Reason: Pain, Severe (Pain Scale 7-10) Last Admin: 09/22/25 03:36 Dose: 2 mg Documented By: LUIS Ondansetron HCl (Ondansetron Hcl 4 Mg/2 Ml Vial) 4 mg IVPUSH Q8H PRN PRN Reason: Nausea and Vomiting Last Admin: 09/22/25 09:41 Dose: 4 mg Documented By: DANY Pharmacy Consult (Consult Rx Etoh Phenob Im/Po) 1 each MISCELLANE ONCE PRN; Protocol PRN Reason: Consult order Phenobarbital (Phenobarbital 15 Mg Tablet) 15 mg PO BID [facility]; Protocol Stop: 09/23/25 21:01 Last Admin: 09/22/25 09:35 Dose: 15 mg Documented By: DANY Phenobarbital (Phenobarbital 15 Mg Tablet) 15 mg PO DAILY [facility]; Protocol Stop: 09/25/25 09:01 Sodium Chloride (0.9 % Sodium Chloride Flush 3 Ml Syringe) 3 ml IVFLUSH [facility] Last Admin: 09/22/25 09:28 Dose: Not Given Documented By: DANY Non-Admin Reason: IV Running Thiamine HCl (Thiamine Hcl 100 Mg Tablet) 100 mg PO DAILY [facility] Last Admin: 09/22/25 09:35 Dose: 100 mg Documented By: DANY Labs 09/21/25 05:59 09/21/25 05:59 Microbiology Microbiology Results: Microbiology 09/19/25 Unknown Urine Culture - Final Urine clean catch - Clean Catch Midstream Escherichia coli 09/19/25 07:47 Blood Culture - Preliminary Blood - Venous No growth after 48 hours. 09/19/25 07:00 Blood Culture - Preliminary Blood - Venous No growth after 48 hours. Assessment and Plan (1) Acute pancreatitis: Status: Acute Plan 34F PMH ETOH dependence presented with abd pain acute etoh pancreatitis advance to solids but still complaining of pain and nausea vomiting ivf, iv pain meds etoh dependence with withdrawal phenobarb, ciwa symptoms improving DVT prophylaxis with Lovenox Full code reason for continued hospitalization:awaiting evidence of po tolerance Quality Stroke Does the patient have a stroke diagnosis?: No VTE Prior VTE?: No VTE Risk Level:: Medical - moderate - high VTE Device Contraindication: N/A - Device Ordered VTE Drug Contraindication: N/A - Med Ordered
[2025-09-22 16:00] VITALS: BP 124/81; PULSE 74; RESP 16; TEMP 36.4; O2SAT 97
[2025-09-22 20:00] VITALS: BP 145/90; PULSE 77; RESP 20; TEMP 36.2; O2SAT 96
[2025-09-23] VITALS: BP 110/84; PULSE 70; RESP 16; TEMP 36.2; O2SAT 96
[2025-09-23 04:00] VITALS: BP 128/80; PULSE 72; RESP 16; TEMP 36.4; O2SAT 99
[2025-09-23 07:34] LABS: Alanine Aminotransferase 87 U/L (0-31); Albumin Level 4.0 g/dL (3.5-5.0); Alkaline Phosphatase 85 U/L (39-117); Anion Gap 13 (12-20); Aspartate Amino Transferase 182 U/L (5-31); Blood Urea Nitrogen 13 mg/dL (9-16); Calcium 9.9 mg/dL (8.4-10.2); Carbon Dioxide 25 mmol/L (22-29); Chloride 102 mmol/L (96-108); Creatinine Clr Calc Pharmacy 58.5; Estimated Glomerular Filt Rate > 60; Magnesium 2.1 mg/dL (1.6-2.6); Potassium 4.4 mmol/L (3.3-5.1); Sodium 136 mmol/L (135-145); Total Protein 6.8 g/dL (6.5-8.0)
[2025-09-23 07:42] LABS: Hematocrit 38.7 % (37.0-47.0); Hemoglobin 13.1 g/dl (12.0-16.0); Mean Corpuscular HGB Conc 33.9 g/dl (31.0-35.0); Mean Corpuscular Hemoglobin 32.3 pg (27.0-33.0); Mean Corpuscular Volume 95.3 fL (80.0-98.0); NRBC Abs Auto 0.000 X10*3/uL (0.0-0.012); NRBC Pct Auto 0.0 /100WBC (0.0-0.2); Platelet Count 180 X10*3/uL (160-400); Red Blood Count 4.06 X10*6/uL (4.20-5.50); White Blood Count 7.8 X10*3/uL (4.8-10.8)
[2025-09-23 07:46] VITALS: BP 139/88; PULSE 75; RESP 18; TEMP 36.2; O2SAT 99
[2025-09-23] MEDS: 0.9 % Sodium Chloride Flush 3 ML SYRINGE IVFLUSH (08:15)
--- NOTE | 2025-09-23 08:59 | MHC.CM.PN ---
PT CLEARED TO DC HOME TODAY WITH NO SERVICES VIA PRIVATE TRANSPORT
== END 2025-09-23 11:31 | disposition home or self-care (01) | DRG 282 ==
LOC: HO.ED 09:45 → HO.EDOVER 10:43 → HO.IMC 15:13
PROVIDERS: Admitting Provider Physician Assistant Medical; Emergency Provider Emergency Medicine; Visit Provider Internal Medicine
DX: K85.20 Alcohol induced acute pancreatitis without necrosis or infection (principal); E87.20 Acidosis, unspecified; K29.20 Alcoholic gastritis without bleeding; N39.0 Urinary tract infection, site not specified; F10.239 Alcohol dependence with withdrawal, unspecified
CPT/HCPCS: 36415; 74177; 80048; 80053; 80076; 80307; 81001; 81003; 82947; 83690; 83735; 84478; 84702; 85025; 85027; 85610; 87040; 87086; 87088; 87186; 93005; 99285; J0696; J1308; J1650; J1885; J2270; J2405; J2560; J3360; J7120; Q9967; S9485

== ENCOUNTER → 2025-09-19 06:43 | Outpatient (BNV) | payer MEDICAID, SELFPAY | PROVIDERS: Emergency Provider Emergency Medicine; Visit Provider Radiology Body Imaging | DX: K85.90 Acute pancreatitis without necrosis or infection, unspecified (principal) | CPT/HCPCS: 74177 ==

== ENCOUNTER → 2025-09-19 07:49 | Outpatient (BNV) | payer MEDICAID, SELFPAY | PROVIDERS: Admitting Provider Physician Assistant Medical; Emergency Provider Emergency Medicine; Visit Provider Internal Medicine Cardiovascular Disease | DX: F10.239 Alcohol dependence with withdrawal, unspecified (principal) | CPT/HCPCS: 93010 ==

== ENCOUNTER → 2025-09-19 09:53 | Outpatient (BNV) | payer MEDICAID, SELFPAY | PROVIDERS: Admitting Provider Physician Assistant Medical; Emergency Provider Emergency Medicine; Visit Provider Internal Medicine | DX: K85.90 Acute pancreatitis without necrosis or infection, unspecified (principal) | CPT/HCPCS: 99233 ==